=== PATIENT | female | born 1985 | race Caucasian/White ===

== ENCOUNTER 2021-05-13 16:41 | Emergency (ER) | payer BC ==
--- OUTSIDE RECORDS SUMMARY | 2021-05-13 16:43 | XMS REPORT | Continuity of Care Document ---
:1985 Author Organization [facility] Address [address] [place] [address] Care Team Providers Name Role Phone MEDI Attending Clinician Unavailable Problems This patient has no known problems. Allergies, Adverse Reactions, Alerts This patient has no known allergies or adverse reactions. Medications This patient has no known medications. Procedures This patient has no known procedures. Encounters Start End Encounter Admission Attending Care Care Encounter Source Date/Time Date/Time Type Type Clinicians Facility Department ID 2021-05-02 2021-05-02 Outpatient [facility] [id number] 00:00:00 00:00:00 RUTHY [address] 2021-04-18 2021-04-20 Outpatient [facility] [id number] 00:00:00 00:00:00 RUTHY [address] 2021-04-18 2021-04-18 Outpatient [facility] [id number] 00:00:00 00:00:00 RUTHY [address] Results This patient has no known results.
--- NOTE | 2021-05-13 17:36 | ER ---
Nurse's Notes [facility] Name: Shayna Cardenas Age: 36 yrs Sex: Female : 1985 Arrival Date: 05/13/2021 Time: 16:43 Bed Waiting Private MD: Diagnosis: ED Course: 05/13 16:43 Patient arrived in ED. ds1 Administered Medications: No medications were administered Outcome: 17:36 Patient left the ED. iw Signatures: Neli Burnett ds1 Brittany Butler, RN RN iw
== END 2021-05-13 17:36 | disposition left against medical advice (07) ==
LOC: ER 16:41
DX: Z02.89 Encounter for other administrative examinations (principal)

== ENCOUNTER 2024-09-02 18:24 | Emergency (ER) | payer BC ==
[2024-09-02] MEDS ORDERED: DIPHENHYDRAMINE 50 MG/ML VIAL ONE (18:45)
[2024-09-02] MEDS ORDERED: METHYLPREDNISOLONE 125 MG INJ ONE (18:45)
[2024-09-02] MEDS ORDERED: FAMOTIDINE 20 MG/2 ML VIAL IV ONE (18:45)
[2024-09-02] MEDS ORDERED: NA CHLORIDE 0.9% 1,000 ML ONE (18:45)
--- NOTE | 2024-09-02 19:48 | ER ---
Nurse's Notes [facility] Name: Shayna Cardenas Age: 39 yrs Sex: Female : 1985 Arrival Date: 09/02/2024 Time: 18:24 Bed 16 Private MD: Diagnosis: Allergic reaction Presentation: 09/02 18:27 Chief complaint: Chief complaint: Patient states: she has an allergy to latex and she iw ate some lettuce and she started to feel a knot in her throat. 18:29 Coronavirus screen: At this time, the client does not indicate any symptoms associated iw with coronavirus-19. Ebola Screen: No symptoms or risks identified at this time. Risk Assessment: Do you want to hurt yourself or someone else? Patient reports no desire to harm self or others. 18:29 Method Of Arrival: Ambulatory iw 18:29 Acuity: GABRIEL 3 iw Triage Assessment: 20:45 General: Appears in no apparent distress. slender, well groomed, Behavior is calm, vc1 cooperative, appropriate for age. Pain: Denies pain. EENT: No deficits noted. No signs and/or symptoms were reported regarding the EENT system. Neuro: Level of Consciousness is awake, alert, obeys commands, Oriented to person, place, time, situation, Appropriate for age. Cardiovascular: Heart tones S1 S2 present Capillary refill < 3 seconds Patient's skin is warm and dry. Respiratory: Airway is patent Respiratory effort is even, unlabored, Respiratory pattern is regular, symmetrical, Breath sounds are clear bilaterally. GI: No deficits noted. No signs and/or symptoms were reported involving the gastrointestinal system. : No deficits noted. No signs and/or symptoms were reported regarding the genitourinary system. Derm: No deficits noted. No signs and/or symptoms reported regarding the dermatologic system. Musculoskeletal: Circulation, motion, and sensation intact. Range of motion: intact in all extremities. Historical: - Allergies: 18:30 Latex, Natural Rubber; iw 18:38 Hydrocodone-Acetaminophen; iw 18:38 Tramadol HCl; iw 18:38 Sudafed; iw 18:38 Ibuprofen; iw 18:38 Propoxyphene HCl; iw 18:38 sesame oil; iw 18:38 Adhesives; iw 18:38 [place]; iw 18:38 Polyvinyl Alcohol; iw 18:38 Banana; iw 18:38 Watermelon; iw 18:38 mold; iw 18:38 tree extract; iw - Immunization history:: Adult Immunizations unknown. - Infectious Disease History:: Denies. - Social history:: Smoking status: Patient denies any tobacco usage or history of. Screenin:50 [facility] ED Fall Risk Assessment (Adult) History of falling in the last 3 months, db including since admission No falls in past 3 months (0 pts) Confusion or Disorientation No (0 pts) Intoxicated or Sedated No (0 pts) Impaired Gait No (0 pts) Mobility Assist Device Used No (0 pt) Altered Elimination No (0 pt) Score/Fall Risk Level 0 - 2 = Low Risk Oriented to surroundings, Maintained a safe environment. Abuse screen: Denies threats or abuse. Denies injuries from another. Nutritional screening: No deficits noted. Tuberculosis screening: No symptoms or risk factors identified. Assessment: 18:50 Reassessment: Patient appears in no apparent distress at this time. Patient and/or db family updated on plan of care and expected duration. Pain level reassessed. Patient is alert, oriented x 3, equal unlabored respirations, skin warm/dry/pink. General: Appears in no apparent distress. comfortable, Behavior is calm, cooperative. Pain: Denies pain. Neuro: Level of Consciousness is awake, alert, obeys commands, Oriented to person, place, time, situation. Cardiovascular: No deficits noted. Respiratory: Airway is patent Respiratory effort is even, unlabored, Breath sounds are clear bilaterally. GI: No deficits noted. No signs and/or symptoms were reported involving the gastrointestinal system. 19:25 General: Appears in no apparent distress. comfortable. Pain: Denies pain. Neuro: No mb12 deficits noted. Level of Consciousness is awake, alert, obeys commands, Oriented to person, place, time, situation, Appropriate for age. Cardiovascular: No deficits noted. Respiratory: No deficits noted. Airway is patent Respiratory effort is even, unlabored. GI: No deficits noted. No signs and/or symptoms were reported involving the gastrointestinal system. Derm: No deficits noted. Vital Signs: 18:41 BP 124 / 84; Pulse 83; Resp 19; Pulse Ox 98% on R/A; iw 19:26 BP 126 / 82; Pulse 77; Resp 17; Temp 98.5; Pulse Ox 99% ; Pain 0/10; mb12 19:26 Pain Scale: Adult mb12 ED Course: 18:25 Patient arrived in ED. im 18:27 Zoë Phillips FNP-C is [facility]. kb 18:27 Wayne Centeno MD is Attending Physician. kb 18:30 Triage completed. iw 18:31 Arm band placed on. iw 18:45 Inserted saline lock: 22 gauge in left antecubital area, using aseptic technique. ty Flushed with 10 mL NS. 18:50 Patient has correct armband on for positive identification. Bed in low position. Call db light in reach. Side rails up X 1. Pulse ox on. NIBP on. Pillow given. 18:53 Blanca Villafana, TEMO is Primary Nurse. db 19:55 No provider procedures requiring assistance completed. IV discontinued. mb12 Administered Medications: 18:48 Drug: Famotidine IVP 20 mg IVP once; dilute with 10 mL 0.9% NaCl; give over 2 minutes db Route: IVP; Site: left antecubital; 19:54 Follow up: Response: No adverse reaction mb12 18:48 Drug: NS 0.9% IV 1000 ml IV at 1000 ml once; to be given as a bolus over 60 minutes db Route: IV; Rate: 1000 ml; Site: left antecubital; 19:54 Follow up: Response: No adverse reaction; IV Status: Completed infusion mb12 18:48 Drug: MethylPrednisoLONE IVP 125 mg IVP once Route: IVP; Site: left antecubital; db 19:55 Follow up: Response: No adverse reaction mb12 18:53 Drug: diphenhydrAMINE IVP 12.5 mg IVP once Route: IVP; Site: left antecubital; db 19:55 Follow up: Response: No adverse reaction mb12 Medication: 18:50 VIS not applicable for this client. db Outcome: 19:48 Discharge ordered by . kb 20:43 Discharged to home ambulatory, mb12 20:43 Condition: improved 20:43 Discharge instructions given to patient, significant other, Instructed on discharge instructions, follow up and referral plans. Demonstrated understanding of instructions, follow-up care, medications, Prescriptions given X 2, 20:44 Patient left the ED. mb12 Signatures: Zoë Phillips FNP-C [employer] Brittany Butler, TEMO PLASCENCIA iw Jazmine Faria RN RN vc1 Blanca Villafana, RN RN db Ofe Albarran Tylor ty Benavides, Marlem mb12 Corrections: (The following items were deleted from the chart) 18:30 18:27 Chief complaint: reginald montelongo
--- NOTE | 2024-09-02 19:48 | EDPHYS ---
Physician Documentation [facility] Name: Shayna Cardenas Age: 39 yrs Sex: Female : 1985 Arrival Date: 09/02/2024 Time: 18:24 Bed 16 Private MD: ED Physician Wayne Centeno HPI: 09/02 18:30 This 39 yrs old Female presents to ER via Unassigned with complaints of Allergic kb Reaction. 18:30 Pt is a 39 year old female who presents for allergic reaction after eating lettuce. kb States she has a latex allergy. Reports intermittent pain in throat and this is normally how it feels when she has an allergic reaction. Reports slight itching. Took 50mg benadryl user acceptance tester. States this started 25 minutes user acceptance tester. . Historical: - Allergies: 18:30 Latex, Natural Rubber; iw 18:38 Hydrocodone-Acetaminophen; iw 18:38 Tramadol HCl; iw 18:38 Sudafed; iw 18:38 Ibuprofen; iw 18:38 Propoxyphene HCl; iw 18:38 sesame oil; iw 18:38 Adhesives; iw 18:38 [place]; iw 18:38 Polyvinyl Alcohol; iw 18:38 Banana; iw 18:38 Watermelon; iw 18:38 mold; iw 18:38 tree extract; iw - Immunization history:: Adult Immunizations unknown. - Infectious Disease History:: Denies. - Social history:: Smoking status: Patient denies any tobacco usage or history of. ROS: 18:30 Constitutional: As per HPI kb Exam: 18:30 Constitutional: This is a well developed, well nourished patient who is awake, alert, kb and in no acute distress. Head/Face: Normocephalic, atraumatic. ENT: Moist Mucous membranes Cardiovascular: Regular rate Respiratory: Respirations even and unlabored. No increased work of breathing. Talking in full sentences MS/ Extremity: Pulses equal, no cyanosis. Neurovascular intact. Full, normal range of motion. Neuro: Awake and alert, GCS 15, oriented to person, place, time, and situation. 18:30 Skin: rash a mild rash is noted, on the chest and neck, Vital Signs: 18:41 BP 124 / 84; Pulse 83; Resp 19; Pulse Ox 98% on R/A; iw 19:26 BP 126 / 82; Pulse 77; Resp 17; Temp 98.5; Pulse Ox 99% ; Pain 0/10; mb12 19:26 Pain Scale: Adult mb12 MDM: 18:27 Medical Screening Exam initiated kb 19:47 Data reviewed: vital signs, nurses notes. kb 19:47 Differential diagnosis: anaphylaxis, angioedema, urticaria. Historians other than the kb Patient: Spouse/Significant Other: spouse. Counseling: I had a detailed discussion with the patient and/or guardian regarding the historical points, exam findings, and any diagnostic results supporting the discharge/admit diagnosis, the need for outpatient follow up, a family practitioner, to return to the emergency department if symptoms worsen or persist or if there are any questions or concerns that arise at home. ED course: Symptoms resolved after treatment. 09/02 18:29 Order name: IV Start; Complete Time: 18:45 kb Administered Medications: 18:48 Drug: Famotidine IVP 20 mg IVP once; dilute with 10 mL 0.9% NaCl; give over 2 minutes db Route: IVP; Site: left antecubital; 19:54 Follow up: Response: No adverse reaction mb12 18:48 Drug: NS 0.9% IV 1000 ml IV at 1000 ml once; to be given as a bolus over 60 minutes db Route: IV; Rate: 1000 ml; Site: left antecubital; 19:54 Follow up: Response: No adverse reaction; IV Status: Completed infusion mb12 18:48 Drug: MethylPrednisoLONE IVP 125 mg IVP once Route: IVP; Site: left antecubital; db 19:55 Follow up: Response: No adverse reaction mb12 18:53 Drug: diphenhydrAMINE IVP 12.5 mg IVP once Route: IVP; Site: left antecubital; db 19:55 Follow up: Response: No adverse reaction mb12 Disposition Summary: 09/02/24 19:48 Discharge Ordered Notes: Location: Home Condition: Stable kb Diagnosis - Allergic reaction kb Followup: kb - With: Emergency Department - When: As needed - Reason: Worsening of condition Followup: kb - With: Private Physician - When: 2 - 3 days - Reason: Recheck today's complaints, Continuance of care, Re-evaluation by your physician Discharge Instructions: - Discharge Summary Sheet kb - Allergies, Adult, [id number] kb Forms: - Medication Reconciliation Form kb - Antibiotic Education kb - Prescription Opioid Use kb - Patient Portal Instructions kb - Leadership Thank You Letter kb Prescriptions: - Pepcid 20 mg Oral Tablet - take 1 tablet ORAL route every 12 hours for 5 days; 10 tablet; Refills: 0, kb Product Selection Permitted - Prednisone 20 mg Oral Tablet - take 1 tablet ORAL route once daily for 5 days; 5 tablet; Refills: 0, Product kb Selection Permitted Signatures: Zoë Phillips, ALE MEDINA-Brittany Banuelos RN RN Blanca Rayo RN RN Juan Luis Norman mb12
[2024-09-02 21:24] VITALS: BP 126/82; TEMP 98.5; O2SAT 99
== END 2024-09-02 20:44 | disposition home or self-care (01) ==
LOC: ER 18:24
DX: R21 Rash and other nonspecific skin eruption (principal); R07.0 Pain in throat
CPT/HCPCS: 96361; 96375; 96374; 99284; J1200; J2919; J7030